=== PATIENT | male | born 1985 | race Caucasian/White ===

== ENCOUNTER 2023-03-25 18:57 | Emergency (ER) | payer OTHER ==
--- OUTSIDE RECORDS SUMMARY | 2023-03-25 19:00 | XMS REPORT | Continuity of Care Document ---
:1985 Author Organization [facility] t Address [address] [facility] [place] [address] Care Team Providers Name Role Phone PCP, PATIENT DOES NOT HAVE A Primary Care Physician Unavaila ble ABBEY BROOKE Attending Clinician Unavailable Abbey Brooke DO Attending Clinician ABBEY BROOKE Admitting Clinician Unavailable Payers Payer Name Policy Type Policy Number Effective Date Expiration Date S osmar LYNNR FROM [id number] 2022 [facility] 00:00:00 Problems This patient has no known problems. Allergies, Adverse Reactions, Alerts Allergy Allergy Status Severity Reaction(s) Onset Inactive Treating Comm ents Source Name Type Date Date Clinician NO KNOWN Drug Active Univers ALLERGIE Class ity of S [facility] Social History Social Habit Start Date Stop Date Quantity Comments Source Sex Assigned At [birth year] [facility] y of [place] 00:00:00 00:00:00 Medical Branch Smoking Status Start Date Stop Date Source Tobacco smoking consumption [facility] Branch Medications Ordered Filled Start Stop Current Ordering Indication Dosage Frequency Signature Comments Components Source Medication Medication Date Date Medication? Clinician (SIG) Name Name HYDROcodone 2022- No 1{tbl} 1 tablet, Univers -acetaminop 02-16 Oral, ity of hen (NORCO 17:00: 16:56 ONCE, 1 Maninder as 5) 5-325 mg 00 :00 dose, On Medi miguel angel tablet 1 02/16/23 Branc h tablet at 1200, DANITZA Immunizations Ordered Filled Immunization Date Status Comments Sourc e Immunization Name Name TD Pres-Free 2023-02-16 Completed University o f 00:00:00 [facility] Vital Signs Vital Name Observation Time Observation Value Comments Source Heart rate 2023-02-16 18:00:00 87 /min [facility] Respiratory rate 2023-02-16 18:00:00 18 /min [facility] Oxygen saturation in 2023-02-16 18:00:00 99 /min [facility] Arterial blood by [facility] Pulse oximetry Branch Systolic blood 2023-02-16 16:34:00 142 mm[Hg] Univer sity of pressure [facility] Diastolic blood 2023-02-16 16:34:00 80 mm[Hg] Unive rsity of [facility] Body temperature 2023-02-16 16:34:00 37 Abby [facility] height 2023-02-16 16:34:00 172.7 cm [facility] Body weight 2023-02-16 16:34:00 83.915 kg [facility] BMI 2023-02-16 16:34:00 28.13 kg/m2 [facility] Procedures Procedure Date / Time Performed Performing Clinician Aroldo e [place] SIMPLE REPAIR 2023-02-16 18:33:14 Abbey Brooke [facility] SCALP/NECK/AX/GENIT/T Medical Br anch RUNK 2.5CM/< XR FINGERS 2 VW RIGHT 2023-02-16 17:12:43 Abbey [facility]oke [facility] Encounters Start End Encounter Admission Attending Care Care Encounter Source Date/Time Date/Time Type Type Clinicians Facility Department ID 2023-02-16 2023-02-16 Emergency X MENDY INMARIAM ERT [id number] Univers 11:38:00 13:43:00 ABBEY contreras [facility] 2023-02-16 2023-02-16 Emergency Mendy INMARIAM [id number] Univers 11:38:00 13:43:00 Abbey AU [id number] ben gonsalez [place] [id number] [facility] [id number] [facility] 084 Branch Results This patient has no known results.
[2023-03-25] MEDS ORDERED: FLUORESCEIN SODIUM 1 MG/WRAP ONE (19:53)
[2023-03-25] MEDS ORDERED: TETRACAINE HCL 0.5% 4ML OPTH ONE (19:53)
--- NOTE | 2023-03-25 20:07 | ER ---
Nurse's Notes [facility] Name: Taurus Garza Age: 37 yrs Sex: Male : 1985 Arrival Date: 03/25/2023 Time: 18:57 Bed 10 Private MD: Diagnosis: Injury of conjunctiva and corneal abrasion without foreign body, left eye Presentation: 03/25 19:34 Chief complaint: Patient states: left eye pain of 7 with redness and possible foreign pf1 body of sawdust while nailing up plywood,onset 1500 today. 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 Coronavirus screen: Vaccine status: Patient reports being unvaccinated. Client denies travel out of the [place] in the last 14 days. At this time, the client does not indicate any symptoms associated with coronavirus-19. Ebola Screen: Patient negative for fever greater than or equal to 101.5 degrees Fahrenheit, and additional compatible Ebola Virus Disease symptoms. Initial Sepsis Screen: Does the patient meet any 2 criteria? No. Patient's initial sepsis screen is negative. Does the patient have a suspected source of infection? No. Patient's initial sepsis screen is negative. Risk Assessment: Do you want to hurt yourself or someone else? Patient reports no desire to harm self or others. 19:34 Method Of Arrival: Ambulatory pf1 19:34 Acuity: MARIE 4 pf1 Historical: - Allergies: 19:37 No Known Allergies; pf1 - Home Meds: 19:38 None [Active]; pf1 - PMHx: 19:38 None; pf1 - PSHx: 19:38 right wrist surgery; pf1 - Immunization history:: Adult Immunizations up to date, Client reports having NOT received the Covid vaccine. Last tetanus immunization: < 5 years ago Flu vaccine is not up to date. - Social history:: Smoking status: Patient reports the use of cigarette tobacco products, smokes one-half pack cigarettes per day, Patient/guardian denies using alcohol, street drugs. Screenin:41 [facility] ED Fall Risk Assessment (Adult) History of falling in the last 3 months, pf1 including since admission No falls in past 3 months (0 pts) Confusion or Disorientation No (0 pts) Intoxicated or Sedated No (0 pts) Impaired Gait No (0 pts) Mobility Assist Device Used No (0 pt) Altered Elimination No (0 pt) Score/Fall Risk Level 0 - 2 = Low Risk Oriented to surroundings, Maintained a safe environment, Educated pt \T\ family on fall prevention, incl call for assistance when getting out of bed, Assessed \T\ reinforced patient's understanding of fall precautions, Provided non-skid footwear, Hourly rounding (assess needs \T\ fall precautionary measures) done, Used ambulatory aids as needed (educated on \T\ assisted with), Used gait belt as appropriate. Abuse screen: Denies threats or abuse. Nutritional screening: No deficits noted. Tuberculosis screening: No symptoms or risk factors identified. Assessment: 19:39 General: Appears in no apparent distress. uncomfortable, well groomed, well developed, pf1 Behavior is calm, cooperative, appropriate for age, quiet. Pain: Complains of pain in left eye Pain currently is 7 out of 10 on a pain scale. Neuro: No deficits noted. Level of Consciousness is awake, alert, obeys commands, Oriented to person, place, time, situation. Cardiovascular: No deficits noted. Capillary refill < 3 seconds Patient's skin is warm and dry. Respiratory: No deficits noted. Airway is patent Respiratory effort is even, unlabored, Respiratory pattern is regular, symmetrical. GI: No deficits noted. No signs and/or symptoms were reported involving the gastrointestinal system. : No deficits noted. No signs and/or symptoms were reported regarding the genitourinary system. EENT: Eyes are tearing on left eye Sclera/Cornea are reddened in outer aspect of conjuctiva of left eye, iris of left eye and inner aspect of conjunctiva of left eye Reports pain in left eye with possible foreign body to left eye, possible sawdust Pain is 7 out of 10 on a pain scale. Derm: No deficits noted. No signs and/or symptoms reported regarding the dermatologic system. Vital Signs: 19:10 BP 122 / 78; Pulse 91; Resp 18; Temp 97.8; Pulse Ox 95% on R/A; Weight 81.65 kg; Height oe 5 ft. 8 in. ; 19:34 BP 122 / 78; Pulse 86; Resp 18; Temp 97.8; Pulse Ox 97% on R/A; Weight 81.65 kg; Height pf1 5 ft. 8 in. ; Pain 7/10; 20:21 BP 115 / 69; Pulse 89; Resp 18; Pulse Ox 100% on R/A; Pain 0/10; pf1 19:34 Body Mass Index 27.37 (81.65 kg, 172.72 cm) pf1 19:34 Pain Scale: Adult pf1 20:21 Pain Scale: Adult pf1 ED Course: 18:59 Patient arrived in ED. mr 19:04 Truman Wilder MD is Attending Physician. [facility] 19:37 Triage completed. pf1 19:41 Patient has correct armband on for positive identification. Bed in low position. Call pf1 light in reach. 19:41 Arm band placed on right wrist. pf1 19:41 Patient did not have IV access during this emergency room visit. pf1 20:07 Kenroy Benavides MD is Referral Physician. [facility] 20:08 Dressings: Eye patch X 1 left eye. pf1 20:10 Maria Isabel Young, CESAR is Primary Nurse. pf1 20:22 No provider procedures requiring assistance completed. pf1 Administered Medications: 20:05 Drug: ERYTHromycin Ophthalmic Ointment 1 application Route: Ophthalmic; Site: left eye; pf1 20:11 Follow up: Response: No adverse reaction; Marked relief of symptoms pf1 Medication: 20:22 VIS not applicable for this client. pf1 Outcome: 20:07 Discharge ordered by . [facility] 20:21 Discharged to home ambulatory. pf1 20:21 Condition: improved 20:21 Discharge instructions given to patient, Instructed on discharge instructions, follow up and referral plans. Demonstrated understanding of instructions, follow-up care, medications, Prescriptions given X 2. 20:22 Patient left the ED. pf1 Signatures: rTuman Wilder MD MD cha Rivera, Mary Amanuel GarlandlandMaria Isabel Massey, RN RN pf1
--- NOTE | 2023-03-25 20:08 | EDPHYS ---
Physician Documentation [facility] Name: Taurus Garza Age: 37 yrs Sex: Male : 1985 Arrival Date: 03/25/2023 Time: 18:57 Bed 10 Private MD: ED Physician Truman Wilder HPI: 03/25 20:03 This 37 yrs old Male presents to ER via Ambulatory with complaints of Foreign jennifer Body In Eye. 20:03 The patient is experiencing foreign body sensation, pain, redness, The patient jennifer sustained an abrasion, to the left eye. Onset: The symptoms/episode began/occurred today. Duration: the symptoms are continuous. Aggravated by closing eye, Alleviated by blinking. Associated signs and symptoms: Pertinent positives: None. Patient does not utilize any form of vision correction. Severity of symptoms: At their worst the symptoms were moderate in the emergency department the symptoms are unchanged. The patient has not experienced similar symptoms in the past. Historical: - Allergies: 19:37 No Known Allergies; pf1 - Home Meds: 19:38 None [Active]; pf1 - PMHx: 19:38 None; pf1 - PSHx: 19:38 right wrist surgery; pf1 - Immunization history:: Adult Immunizations up to date, Client reports having NOT received the Covid vaccine. Last tetanus immunization: < 5 years ago Flu vaccine is not up to date. - Social history:: Smoking status: Patient reports the use of cigarette tobacco products, smokes one-half pack cigarettes per day, Patient/guardian denies using alcohol, street drugs. ROS: 20:04 Constitutional: Negative for fever, chills, and weight loss, ENT: Negative for injury, jennifer pain, and discharge, Neck: Negative for injury, pain, and swelling, Cardiovascular: Negative for chest pain, palpitations, and edema, Respiratory: Negative for shortness of breath, cough, wheezing, and pleuritic chest pain, Abdomen/GI: Negative for abdominal pain, nausea, vomiting, diarrhea, and constipation, Back: Negative for injury and pain, : Negative for injury, bleeding, discharge, and swelling, MS/Extremity: Negative for injury and deformity, Skin: Negative for injury, rash, and discoloration, Neuro: Negative for headache, weakness, numbness, tingling, and seizure, Psych: Negative for depression, anxiety, suicide ideation, homicidal ideation, and hallucinations, Allergy/Immunology: Negative for hives, rash, and allergies, Endocrine: Negative for neck swelling, polydipsia, polyuria, polyphagia, and marked weight changes, Hematologic/Lymphatic: Negative for swollen nodes, abnormal bleeding, and unusual bruising. 20:04 Eyes: Positive for foreign body sensation, pain, tearing, of the iris of left eye. Exam: 20:04 Constitutional: This is a well developed, well nourished patient who is awake, alert, jennifer and in no acute distress. Head/Face: Normocephalic, atraumatic. ENT: Nares patent. No nasal discharge, no septal abnormalities noted. Tympanic membranes are normal and external auditory canals are clear. Oropharynx with no redness, swelling, or masses, exudates, or evidence of obstruction, uvula midline. Mucous membranes moist. Neck: Trachea midline, no thyromegaly or masses palpated, and no cervical lymphadenopathy. Supple, full range of motion without nuchal rigidity, or vertebral point tenderness. No Meningismus. Chest/axilla: Normal chest wall appearance and motion. Nontender with no deformity. No lesions are appreciated. Cardiovascular: Regular rate and rhythm with a normal S1 and S2. No gallops, murmurs, or rubs. Normal PMI, no JVD. No pulse deficits. Respiratory: Lungs have equal breath sounds bilaterally, clear to auscultation and percussion. No rales, rhonchi or wheezes noted. No increased work of breathing, no retractions or nasal flaring. Abdomen/GI: Soft, non-tender, with normal bowel sounds. No distension or tympany. No guarding or rebound. No evidence of tenderness throughout. Back: No spinal tenderness. No costovertebral tenderness. Full range of motion. Male : Normal genitalia with no discharge or lesions. Skin: Warm, dry with normal turgor. Normal color with no rashes, no lesions, and no evidence of cellulitis. MS/ Extremity: Pulses equal, no cyanosis. Neurovascular intact. Full, normal range of motion. Neuro: Awake and alert, GCS 15, oriented to person, place, time, and situation. Cranial nerves II-XII grossly intact. Motor strength 5/5 in all extremities. Sensory grossly intact. Cerebellar exam normal. Normal gait. Psych: Awake, alert, with orientation to person, place and time. Behavior, mood, and affect are within normal limits. 20:04 Eyes: Periorbital structures: appear normal, no acute changes, Pupils: equal, round, and reactive to light and accomodation, Extraocular movements: no acute changes, Conjunctiva: normal, Corneas: abrasion, that is moderate sized, at 11 o'clock, foreign body, is not appreciated, a fluorescein strip employed to appreciate the findings, Sclera: no appreciated abnormality, Anterior chamber: normal, no acute changes, Lids and lashes: appear normal, no acute changes, no evidence of trauma, Nystagmus: is not appreciated. Vital Signs: 19:10 BP 122 / 78; Pulse 91; Resp 18; Temp 97.8; Pulse Ox 95% on R/A; Weight 81.65 kg; Height oe 5 ft. 8 in. ; 19:34 BP 122 / 78; Pulse 86; Resp 18; Temp 97.8; Pulse Ox 97% on R/A; Weight 81.65 kg; Height pf1 5 ft. 8 in. ; Pain 7/10; 20:21 BP 115 / 69; Pulse 89; Resp 18; Pulse Ox 100% on R/A; Pain 0/10; pf1 19:34 Body Mass Index 27.37 (81.65 kg, 172.72 cm) pf1 19:34 Pain Scale: Adult pf1 20:21 Pain Scale: Adult pf1 MDM: 19:04 Patient medically screened. [facility] 20:06 Differential diagnosis: Corneal abrasion of Corneal ulcer of Foreign body in left eye. [facility] Data reviewed: vital signs, nurses notes. Consideration of Admission/Observation Escalation of care including admission/observation considered. I considered the following discharge prescriptions or medication management in the emergency department Medications were administered in the Emergency Department. See MAR. Test considered but Not performed: Labs: no labs. Care significantly affected by the following chronic conditions: none. Counseling: I had a detailed discussion with the patient and/or guardian regarding: the historical points, exam findings, and any diagnostic results supporting the discharge/admit diagnosis, the need for outpatient follow up, for definitive care, an opthalmologist. 03/25 20:02 Order name: Eye Tray; Complete Time: 20:05 [facility] 03/25 20:02 Order name: Misc. Order: patch left eye; Complete Time: 20:10 [facility] Administered Medications: 20:05 Drug: ERYTHromycin Ophthalmic Ointment 1 application Route: Ophthalmic; Site: left eye; pf1 20:11 Follow up: Response: No adverse reaction; Marked relief of symptoms pf1 Disposition Summary: 03/25/23 20:07 Discharge Ordered Location: Home [facility] Problem: [facility] Symptoms: have improved jennifer Condition: Stable jennifer Diagnosis - Injury of conjunctiva and corneal abrasion without foreign body, left eye jennifer Followup: jennifer - With: Private Physician - When: 2 - 3 days - Reason: Recheck today's complaints, Continuance of care, Re-evaluation by your physician Followup: jennifer - With: Kenroy Benavides MD - When: Tomorrow - Reason: Recheck today's complaints, Re-evaluation by your physician Discharge Instructions: - Discharge Summary Sheet [facility] - Corneal Abrasion jennifer - Corneal Abrasion, Rmes-xu-Iuan [facility] Forms: - Medication Reconciliation Form jennifer - Thank You Letter jennifer - Antibiotic Education jennifer - Prescription Opioid Use jennifer - Patient Portal [email or web address].htm [facility] Prescriptions: - acetaminophen-codeine 300-30 mg Oral tablet - take 2 tablet by ORAL route every 6 hours as needed for pain; 20 tablet; [facility] Refills: 0, Product Selection Permitted - Erythromycin 5 mg/gram (0.5 %) Ophthalmic Ointment - apply 1 ribbon by OPHTHALMIC route every 6 hours; 3.5 gram; Refills: 0, Product [facility] Selection Permitted Signatures: Truman Wilder MD MD cha Finley, Pamala, RN RN pf1
[2023-03-25] MEDS ORDERED: ERYTHROMYCIN 1 APPL/1 GM TUBE ONE ×2 (20:10→20:14)
[2023-03-25 21:20] VITALS: TEMP 97.8
[2023-03-25 21:23] VITALS: BP 115/69; O2SAT 100
== END 2023-03-25 20:22 | disposition home or self-care (01) ==
LOC: ER 18:57
DX: S05.02XA Injury of conjunctiva and corneal abrasion without foreign body, left eye, initial encounter (principal); F17.210 Nicotine dependence, cigarettes, uncomplicated
CPT/HCPCS: 99283